=== PATIENT | female | born 1955 | race Caucasian/White ===

== ENCOUNTER → 2016-09-21 | Day surgery (SDC) | payer OTHER ==
[~2016-09-21] VITALS: Ht 162.6 cm; Wt 52.0 kg
[~2016-09-21] MED LIST: ACETAMINOPHEN/HYDROcodone 325 MG/5 MG TAB ONE; AMLO2.5T PO; BUPIVACAINE/EPINEPHRINE 0.5% PF 30 ML VIAL ONE; CYMB60CA PO; DEXAMETHASONE SOD PHOS 4 MG/ML VIAL ONE; ESTR1 PO; HYDR-3580 PO; IBUP800T23 PO; KETOROLAC TROMETHAMINE 30 MG/ML (IVP) VIAL ONE; LACTATED RINGER'S 1000 ML INJ 1,000 ML ONE; LISI-519 PO; MIDAZOLAM HCL 5 MG/ML VIAL (1 ML) ONE; PHENYLEPH/NS 1000 MCG/10 ML SYR IV ONE; PROPOFOL 200 MG/20 ML AMP IV ONE; SODIUM CHLOR 0.9% 250 ML INJ 250 ML ONE; TRAM50TA PO; TRIAMCINOLONE ACETONIDE 40 MG/ML VIAL ONE; VANCOMYCIN HCL 1000 MG VIAL ONE; ceFAZolin INJ 1,000 MG VIAL ONE
[2016-09-21 11:30] VITALS: BP 143/77; PULSE 79; RESP 16; TEMP 98.3; O2SAT 99
[2016-09-21 11:35] VITALS: PULSE 79
[2016-09-21 12:18] VITALS: PULSE 83
[2016-09-21 13:51] VITALS: PULSE 92
[2016-09-21 14:30] VITALS: TEMP 97.9
[2016-09-21 15:20] VITALS: BP 117/69; PULSE 90; RESP 16; O2SAT 95
--- NOTE | 2016-09-24 21:46 | MP ---
cc: DRAKE BOWEN M.D. DATE OF SURGERY September 21, [address] Drake Bowen. PREOPERATIVE DIAGNOSIS Rotator cuff tear of the right shoulder. POSTOPERATIVE DIAGNOSIS Rotator cuff tear of the right shoulder. PROCEDURE Repair of rotator cuff with anterior decompression and bicipital groove injection. PROCEDURE IN DETAIL The patient was placed on the operating table in the supine position and then transferred after general anesthesia was administered to the modified beach-chair position with a pad under the shoulder blade. The right shoulder was prepped and draped in usual sterile fashion. The patient did receive prophylactic antibiotic in the form of 1 gram of Ancef and 1 gram vancomycin. Time-out was called and the patient's name procedure, location, etc. were fully confirmed. A 1-inch incision was made over the superior anterior surface of the shoulder and was then taken down to the bursal area. We did pre incision injected with 0.5% Marcaine with epinephrine. Hemostasis was carried out with electrocautery. The deltoid insertion was disinserted protecting the undersurface carefully with a joker. the underlying coracoacromial ligament had already been excised. There also appeared to be wider space at the acromioclavicular joint consistent with previous surgery at that level as well. The acromial process, although very thin in width did, however, result in still residual impingement onto the rotator cuff and bicipital tendon. The tendon was palpable and did not appear to be inflamed and was within the groove. During the procedure we did inject the groove and avoided the tendon itself with 1 mL of Kenalog. The rotator cuff was palpated and visually inspected throughout its extent and not far from its insertion there was obvious partial tearing with only the superficial fibers intact. A [id number] #2 FiberWire was placed through that area and was brought into a tighter position closing the gap. The acromial process was thinned also prior to that with a high-speed power bur which did eliminate the residual impingement. The shoulder was then brought into all positions including abduction and there was no impingement remaining of the rotator cuff which was free repair and acromioplasty present. After thorough irrigation throughout the procedure the deltoid was reinserted with a #1 Tycron placed through the bone itself. The subcutaneous tissue was closed with running 3-0 Vicryl and the skin edges approximated with running subcuticular suture utilizing 4-0 Vicryl. Steri-Strips were applied, followed by application of a small dressing. The patient was then immobilized in a sling and swath. The procedure was tolerated well. Sponge count, needle count and instrument counts were reported correct x2 and the patient was transferred to the recovery room in satisfactory condition. MD HIGINIO Crystal/AMIRA /1:45 PM /8:37 PM
== END | disposition home or self-care (01) ==
LOC: PHSDC 11:02
PROVIDERS: ATTEND Orthopaedic Surgery
DX: M75.121 Complete rotator cuff tear or rupture of right shoulder, not specified as traumatic (principal); M75.21 Bicipital tendinitis, right shoulder; I10 Essential (primary) hypertension
CPT/HCPCS: 01610; 23412; 23430; 64415; J0690; J1100; J1885; J2250; J2370; J3010; J3301; J3370; J7050; J7120